=== PATIENT | female | born 1950 | race Caucasian/White ===

== ENCOUNTER 2021-10-06 10:27 | Emergency (ER) | payer OTHER, BC ==
[~2021-10-06] VITALS: Ht 162.6 cm; Wt 59.0 kg
[2021-10-06 10:58] LABS: ABSOLUTE NEUTROPHILS 5.1 thou/uL (1.4-8.2); BASOPHILS 0.5 % (0.0-2.0); EOSINOPHILS 2.8 % (0.0-3.0); HEMATOCRIT 31.9 % (37.0-47.0); HEMOGLOBIN 10.6 gm/dL (12.0-15.0); LYMPHOCYTES 16.5 % (24.0-44.0); MCH 31.4 pg (26.0-34.0); MCHC 33.3 g/dL (28.0-37.0); MCV 94.3 fL (80.0-100.0); MONOCYTES 14.2 % (1.0-8.0); PLATELET COUNT 247 thou/uL (150-400); RBC 3.38 mil/uL (4.20-5.00); RDW 15.5 % (10.5-14.5); WBC 7.8 thou/uL (4.0-11.0)
[2021-10-06 11:04] LABS: URINE BILIRUBIN NEGATIVE (Negative); URINE BLOOD NEGATIVE (Negative); URINE CLARITY CLEAR; URINE COLOR YELLOW; URINE GLUCOSE-RANDOM* TRACE (Negative); URINE KETONES NEGATIVE (Negative); URINE LEUKOCYTES-REFLEX NEGATIVE (Negative); URINE NITRITE-REFLEX NEGATIVE (Negative); URINE PROTEIN (DIPSTICK) NEGATIVE (Negative); URINE UROBILINOGEN 0.2 E.U./dl (0.2-1.0)
[2021-10-06 11:22] LABS: CALCIUM 9.2 mg/dL (8.5-10.1); CREATININE 0.4 mg/dL (0.6-1.0); POTASSIUM 4.2 mmol/L (3.5-5.1)
[2021-10-06 11:32] LABS: ALBUMIN 3.2 g/dL (3.4-5.0); DIRECT BILIRUBIN 0.1 mg/dL (<0.1-0.2); TOTAL BILIRUBIN 0.2 mg/dL (0.2-1.0); TOTAL PROTEIN 6.3 g/dL (6.4-8.2)
--- NOTE | 2021-10-06 13:14 | EKG ---
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
[2021-10-06 13:20] VITALS: BP 115/93
--- NOTE | 2021-10-07 12:28 | HC ---
[facility] [place] [address] CONSULTATION Name: TAQUERIA SHUKLA Room #: [facility]P [facility] [id number] Admission: 10/06/21 Attend Phys: Discharge: 10/06/21 Date of : 54 Report #: [id number] THIS REPORT FOR: cc: Pascale Bai MD, Martha M. MD Kerstein,Waqas Blackmon DO ~ DATE OF SERVICE: 10/06/2021 EMERGENCY ROOM PSYCHIATRY CL CONSULTATION EMERGENCY ROOM ATTENDING: Davion Barksdale MD CONSULTING PSYCHIATRIST: Waqas Mckeon DO REASON FOR CONSULTATION: The patient sent out from [facility] due to alleged property destruction, eating paper, psychotic behavior. SOURCES OF INFORMATION: Chair side interview, discussion with her Manny, interview with patient, records, discussion with Emergency Room staff as well as a telephone conversation with the nursing project coordinator of the facility that sent her out, Shwetha. CHIEF COMPLAINT: Unspecified. HISTORY OF PRESENT ILLNESS: This is a 70-year-old, ill-appearing female. She is on 2 liters of continuous oxygen for COPD. She has at least a 48-epjs-dhhj history of tobaccoism. The patient still has not quit, which does raise concerns; however, she has been at her [facility] facility about 4 to 5 days and was hospitalized for several days at [facility] prior to that, so one could argue that she is having a holiday from her cigarettes. In any event, the patient was in good spirits when I met with her. She denied pain. Denied suicidal intent or plan. Denied auditory, visual, or tactile hallucinations. She did not deny that she was eating paper. They did deny the allegation of property destruction. According to the , the patient has had a 2-year decline in function where he is doing most of all the instrumental activities of daily living including banking, checking, telephoning, shopping for groceries, driving, etc. The patient is able to walk with a walker and toilet herself. Interestingly, the smokes as well, but has not been COPD stricken. The couple has 2 adult children. Regarding the patient's placement at the [facility]pc facility, it sounds like it was for a fall. In any event, at bedside, I performed [facility] mental status examination. The patient scored a 13/30. Attention was quite preserved. She got 3 and 4 Reverse Digit Span without problems. Single syllable recall she was 2 for 5 and she got 2 out of the 4 Acute Memory questions correct. She was 1/3 orientation. I discussed with the patient and her that taking in a vacuum, this performance would either be due to delirium or moderately advanced major neurocognitive disorder. Interestingly, I reviewed her lab work and vital [facility] [address] [place] [address] CONSULTATION Name: TAQUERIA SHUKLA Room #: DEP Delon#: [id number] Admission: 10/06/21 Attend Phys: Discharge: 10/06/21 Date of : 54 Report #: [id number] signs and such and discussed with Dr. Barksdale and there were no concerns of hypoxia. Similarly, there were no concerns that the patient was not wearing her oxygen last night or this morning, although the does admit at home that is a problem. That being said, this situation is difficult to prove or disapprove since she has been to several different medical facilities recently. There certainly could be some residual delirium, so I would expect her SLUMS to at least improve slightly; however, the longitudinal story and the cerebrovascular risk factors the describes leads me to believe there is at least a mild major neurocognitive disorder. Moving on, I reviewed the intermediate medication administration record and I had several concerns for medications that would aid and abet psychotic symptoms or behavior. They include Keppra and Mirapex - the anticonvulsant Keppra and dopamine agonism of the Mirapex would be cause for concern for geerating psychosis. REVIEW OF SYSTEMS: Dr. Barksdale's review of systems: CONSTITUTIONAL: Denies fever, chills, malaise, or unexplained weight change. The patient is normally around 100 pounds, which she is now. EYES: Denies eye pain, visual change, or discharge. HENT: Denies hearing changes, ear drainage, ear infections, ear pain, neck pain or neck stiffness. RESPIRATORY: Denies cough, shortness of breath, hemoptysis, respiratory distress. CARDIOVASCULAR: Denies chest pain, chest pain with exertion, or edema. GASTROINTESTINAL: Denies abdominal pain, nausea, vomiting or diarrhea. GENITOURINARY: Denies burning, frequency or dysuria. MUSCULOSKELETAL: Denies back pain, joint pain, muscle weakness or myalgias. SKIN: Denies rash. NEUROLOGIC: Denies headache, loss of consciousness. Otherwise, 10-point review of systems negative. PHYSICAL EXAMINATION: VITAL SIGNS: Weight 58.97 kg. Today, O2 sat 96% on 2 liters of oxygen, BP 121/63, temperature 36.6, pulse 88, respirations 16. GENERAL: In [facility] in Emergency Room on oxygen, supine, but with the back of the gurney propped up again. Her physical exam done by Dr. Barksdale was grossly normal. On EKG, sinus rhythm, rate of 88. No ischemic phenomenon on cardiogram. LABORATORY DATA: Sodium 131, potassium 4.2, chloride 93, bicarbonate 32, anion gap 6, BUN 7, creatinine 0.4, estimated GFR 159, glucose 117, calcium 9.2, total bilirubin 0.2, direct bilirubin 0.1, AST 20, ALT 28, alkaline phosphatase 75. Troponin I high sensitivity 13. Total protein 6.3, albumin 3.2, lipase 60. White count 7.8, H and H 10.6 and 31.9, platelet count 247. SARS-CoV-2 by PCR [facility] [address] [place] [address] CONSULTATION Name: TAQUERIA SHUKLA Room #: DEP MSuleiman.#: [id number] Admission: 10/06/21 Attend Phys: Discharge: 10/06/21 Date of : 54 Report #: [id number] not detected, antigen negative. Urinalysis showed trace glucose, otherwise negative. There was an abdominal x-ray done, which was grossly negative and nonobstructive bowel gas pattern as radiologist noted. Similarly chest x-ray was negative. Background history, I neglect to include the patient was born and raised in the [place] area, high school level of education, no college. 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 SOCIAL HISTORY: No history of alcoholism. No history of recreational drug use. The smoking is described as significant. FAMILY HISTORY: The patient has 7 siblings that are living. She had her father in the 80s, her mother in her 70s. Neither of them had dementia, there where general medical causes, I forget the exact cause of of parents. No history of service. MENTAL STATUS EXAMINATION: This is a well-developed, somewhat ill-appearing female, on oxygen. Attention intact. Concentration limited. Speech normal in rate, volume, and tone. Thought process: Linear and goal directed. Thought content: Focused on the present. Denied suicidal or homicidal ideation. Denied auditory or visual type hallucinations. Memory formally tested and SLUMS as described above and was grossly impaired. Insight and judgment limited. Fund of knowledge below average. FORMULATION: A 70-year-old female sent out from [facility] for concerns of acute psychosis and consumption of non-nutritive substances. DIAGNOSES: Unspecified psychosis, resolved at present; neurodegenerative disorder, working diagnosis; cico-bd-oazasvzx degree of dementia. Additional morbidities including chronic obstructive pulmonary disease. RECOMMENDATIONS: At this time, due to the patient's continuous oxygen, this has been exclusion criteria to the [facility], recommend increased supervision of the patient, remove objects that can be sharp or dangerous. Forgot to add, she was found eating an examination glove, so this should be removed from her room. As much as possible advised to monitor falls or elopement would be desirable. I gave the certified nursing assistant my cell phone number for the medical practice administrator of the nursing facility to call me for additional information. I also recommended that given the circumstances, a trial of 0.5 mg risperidone q. 12 hours for 14 days would be reasonable to try [facility] [address] [place] [address] CONSULTATION Name: SHUKLATAQUERIA Room #: DEP ER Delon#: [id number] Admission: 10/06/21 Attend Phys: Discharge: 10/06/21 Date of : 54 Report #: [id number] and clear up psychosis. Also, examination necessity for ongoing therapy of Keppra and Mirapex should be undertaken, taper where possible. <ELECTRONICALLY SIGNED> By: Waqas Mckeon DO 10/07/21 1228 1520 2102 Waqas Mckeon DO /nt
== END 2021-10-06 15:29 ==
LOC: ER 10:27
PROVIDERS: Student in an Organized Health Care Education/Training Program
DX: R41.82 Altered mental status, unspecified (principal); Z20.822 Contact with and (suspected) exposure to COVID-19; F17.210 Nicotine dependence, cigarettes, uncomplicated